=== PATIENT | male | born 1965 | race Caucasian/White ===

== ENCOUNTER 2017-03-22 17:50 | Emergency (ER) | payer MEDICAID ==
[~2017-03-22] VITALS: Ht 170.2 cm; Wt 65.9 kg
[2017-03-22 18:11] VITALS: BP 154/76
[2017-03-22] MEDS ORDERED: AMLO-511 PO (18:22)
[2017-03-22] MEDS ORDERED: BACITRACIN 0.9 GM PACKET OINTMENT TP ONE (19:45)
[2017-03-22] MEDS ORDERED: NAPHAZOLINE/PHENIR 0.025-0.3% 15 ML OPHTHALMIC SOLUTION OU ONE (19:45)
== END 2017-03-22 19:58 | disposition home or self-care (01) ==
LOC: EMS 17:52
DX: H10.13 Acute atopic conjunctivitis, bilateral (principal); K13.0 Diseases of lips; L85.3 Xerosis cutis; F10.10 Alcohol abuse, uncomplicated; I10 Essential (primary) hypertension; F17.210 Nicotine dependence, cigarettes, uncomplicated; Z88.1 Allergy status to other antibiotic agents
CPT/HCPCS: 99283; 99406